=== PATIENT | female | born 1990 | race African-American/Black ===

== ENCOUNTER 2018-09-10 11:42 | Outpatient (CLI) | payer OTHER ==
--- NOTE | 2018-09-10 12:11 | RAD ---
DOUBLE CONTRAST UPPER GI: CLINICAL HISTORY: Morbid obesity. Preparation for gastric procedure. FINDINGS: There is an appropriate swallowing mechanism and esophageal motility demonstrated with the utilizatio n of effervescent crystals and thick and thin barium. A 12.5 mm barium tablet was administered and d id freely pass through the esophagus and into the stomach. No evidence of esophageal mass or constri cting lesion. The double-contrast opacified gastric lumen is free from significant mass effect. The re is subsequent contrast opacification of a normal caliber proximal small bowel. IMPRESSION: Unremarkable double contrast upper gastrointestinal study. POS: [facility]
== END 2018-09-10 11:43 | disposition home or self-care (01) ==
LOC: RAD 11:42
PROVIDERS: ATTEND Family Medicine
DX: E66.01 Morbid (severe) obesity due to excess calories (principal)
CPT/HCPCS: 74247

== ENCOUNTER 2018-09-13 16:12 | Outpatient (CLI) | payer OTHER | END 2018-09-13 16:13 | disposition home or self-care (01) | LOC: DTY/OP 16:12 | PROVIDERS: ATTEND Specialist | DX: Z01.818 Encounter for other preprocedural examination (principal); E66.01 Morbid (severe) obesity due to excess calories | CPT/HCPCS: 97802 ==

== ENCOUNTER 2018-11-10 13:43 | Outpatient (CLI) | payer OTHER ==
--- NOTE | 2018-11-10 14:14 | RAD ---
CHEST 2 VIEWS: HISTORY: Dyspnea. COMPARISON: Radiograph 2004. FINDINGS: Heart size is moderately enlarged. No pneumothorax. No effusion. No significant pulmonary edema. NO acute osseous abnormality. IMPRESSION: Moderate cardiomegaly. POS: [facility]
== END 2018-11-10 13:44 | disposition home or self-care (01) ==
LOC: RAD 13:43
PROVIDERS: ATTEND Internal Medicine Pulmonary Disease
DX: R06.00 Dyspnea, unspecified (principal); I51.7 Cardiomegaly
CPT/HCPCS: 71046

== ENCOUNTER 2018-12-06 19:30 | Outpatient (CLI) | payer OTHER | END 2018-12-06 19:31 | disposition home or self-care (01) | LOC: SLEEPLAB 19:30 | PROVIDERS: ATTEND Internal Medicine Pulmonary Disease | DX: G47.33 Obstructive sleep apnea (adult) (pediatric) (principal); I10 Essential (primary) hypertension | CPT/HCPCS: 95810 ==

== ENCOUNTER 2018-12-23 20:30 | Outpatient (CLI) | payer OTHER | END 2018-12-23 20:31 | disposition home or self-care (01) | LOC: SLEEPLAB 20:30 | PROVIDERS: ATTEND Internal Medicine Pulmonary Disease | DX: G47.33 Obstructive sleep apnea (adult) (pediatric) (principal) | CPT/HCPCS: 95811 ==

== ENCOUNTER 2019-02-20 22:11 | Observation (INO) | payer OTHER ==
[2019-02-20 22:49] LABS: #Basophils 0.1 thou/uL (0.0-0.2); #Eosinphils 0.4 thou/uL (0.0-0.7); #Lymphocytes 3.7 thou/uL (1.20-3.40); #Monocytes 0.7 thou/uL (0.11-0.59); #Neutrophils 5.3 thou/uL (1.40-6.50); %Basophils 1.3 % (0.0-1.0); %Eosinophils 3.5 % (0.0-10.0); %Neutrophils 52.2 % (42.0-75.0); Mean Corpuscular HGB CONC 31.8 g/dL (32.0-36.0); Mean Corpuscular Hemoglobin 29.4 pg (27.0-31.0); Mean Corpuscular Volume 92.5 fL (78.0-98.0); Mean Platelet Volume 6.8 fL (7.4-10.4); Platelet Count 369 thou/uL (130-400); RBC Distribution Width 12.1 % (11.5-14.5); Red Blood Cell (RBC) Count 4.08 mill/uL (4.20-5.40); White Blood Cell (WBC) Count 10.2 thou/uL (4.8-10.8)
--- NOTE | 2019-02-20 23:00 | RAD ---
PORTABLE UPRIGHT FRONTAL CHEST RADIOGRAPH: 02/20/2019 HISTORY: Chest pain and shortness of breath. COMPARISON: 11/10/2018 FINDINGS: The cardiac silhouette is mildly prominent, in the transverse dimension, similar when compared to the prior examination. The significance is uncertain, secondary to the portable technique and shallow i nspiration. Findings may signify cardiomegaly and/or pericardial effusion. No pneumothorax, pleural fluid, focal consolidation, or alveolar edema. IMPRESSION: Prominence of the cardiac silhouette, as detailed above. POS: [facility]
[2019-02-20 23:11] LABS: ALT (SGPT) 14 U/L (8-55); AST (SGOT) 16 U/L (5-34); Albumin 3.9 g/dL (3.5-5.0); Alkaline Phosphatase 65 U/L (40-150); Anion Gap 10 mmol/L (10-20); BUN (Urea Nitrogen) 13 mg/dL (7.0-18.7); Bilirubin, Total 0.3 mg/dL (0.2-1.2); Calc. Creatinine Clearance 0 mL/min (70-130); Calcium 9.2 mg/dL (7.8-10.44); Carbon Dioxide 28 mmol/L (22-29); Chloride 107 mmol/L (98-107); Estimated GFR-MDRD Greater than 90; Globulin 3.1 g/dL (2.4-3.5); Glucose 109 mg/dL (70-105); Potassium 3.6 mmol/L (3.5-5.1); Sodium 141 mmol/L (136-145)
[2019-02-20] MEDS ORDERED: Lidocaine Viscous Sol 2% 15 ml UD Cup ONE (23:32)
[2019-02-20] MEDS ORDERED: Mag-Al 1200 mg/1200 mg/30 ML UDCUP ONE (23:32)
[2019-02-21] MEDS ORDERED: Acetaminophen 325 MG TAB PO PRN (01:21)
[2019-02-21] MEDS ORDERED: Zolpidem Tartrate 5 MG TAB PO PRN (01:21)
[2019-02-21] MEDS ORDERED: Ondansetron PF 4 MG/2 ML Vial IVP PRN (01:21)
[2019-02-21] MEDS ORDERED: cloNIDine 0.1 MG TAB PO PRN (01:24)
--- NOTE | 2019-02-21 01:28 | HP ---
CHIEF COMPLAINT ON ADMISSION: Chest pain. HISTORY OF PRESENT ILLNESS: This is a 28-year-old female, morbidly obese, presenting with chest pain. States that she has a primary, outpatient takes labetalol, losartan as well as Norvasc for her blood pressure. Otherwise, did not take any other medications. States that about 1 hour prior to arrival in the ER, the patient started having substernal chest pain, pressure-like in nature. The patient was brought into the ER. Denies any other associated symptoms. No alleviating or aggravating factors noted. The patient is seen and examined in the ER, currently stable, not pain-free. No family at bedside. All questions answered. ALLERGIES: NO KNOWN DRUG ALLERGIES. HOME MEDICATIONS: As mentioned in HPI. PAST MEDICAL HISTORY: Hypertension, hyperlipidemia, and obesity. SOCIAL HISTORY: Social drinker. Nonsmoker. FAMILY HISTORY: Positive for hypertension and diabetes mellitus. REVIEW OF SYSTEMS: All systems reviewed, pertinent positive in HPI, otherwise negative. PHYSICAL EXAMINATION: VITAL SIGNS: Blood pressure was 151/88, respiratory rate 18, temperature of 98, O2 saturations were 98% on 2 L nasal cannula. GENERAL: The patient is sitting in bed, in no acute discomfort. HEENT: Pupils are equal, round, and reactive to light and accommodation. Extraocular muscles intact. Normocephalic, atraumatic. Oral cavity moist and pink. NECK: Supple, mobile, and nontender. Thyroid appreciated. PULMONARY: Distant lung sounds given large chest. No respiratory distress. No rales, rhonchi, or wheezing appreciated. CARDIOVASCULAR: Sinus tachycardia, S1 and S2. No murmurs, rubs, or gallops appreciated. ABDOMEN: Rotund. Positive bowel sounds. Soft, nontender, and nondistended. EXTREMITIES: 2+ peripheral pulses bilaterally. Trace pitting edema. LABORATORY DATA: CBC and BMP were reviewed. Chest x-ray also reviewed. Chest x-ray shows prominent cardiac silhouette, but no acute cardiopulmonary pathology. ASSESSMENT: 1. Chest pain. 2. Congestive heart failure. 3. Obesity. 4. Hypertension. 5. Hyperlipidemia. PLAN: At this point in time, we will admit the patient to Internal Medicine team. Start aspirin, statin, and cholesterol medication as well as home medications. Target systolic blood pressure 120 to 140, we will check A1c. We will repeat labs in a.m., trend troponins. We will also obtain an echocardiogram as the patient not had a prior echo in the past 1 year. The patient wishes to remain a full code. Case and plan were discussed with patient at length. She understood and agreed with this plan. Job ID: [id number]
[2019-02-21 01:49] LABS: Hemoglobin A1c 3.9 % (4.0-6.0)
[2019-02-21] MEDS ORDERED: Morphine 4 MG/ML VIAL SLOW IVP PRN (03:16)
[2019-02-21] MEDS ORDERED: Labetalol HCl 100 MG/20 ML VIAL SLOW IVP PRN (03:17)
[2019-02-21 03:25] VITALS: TEMP 98.3; BMI 58.8
[2019-02-21 08:17] VITALS: BP 164/105
[2019-02-21] MEDS ORDERED: Aspirin 81 mg Enteric Coated Tablet PO SCH (09:00)
[2019-02-21] MEDS ORDERED: Amlodipine 10 MG TAB PO SCH (09:00)
[2019-02-21] MEDS ORDERED: Labetalol 100 MG TAB PO SCH (09:00)
[2019-02-21] MEDS ORDERED: Enoxaparin Sodium 40 MG/0.4 ML SYRINGE SC SCH (09:00)
[2019-02-21] MEDS ORDERED: Atorvastatin Calcium 40 MG TAB PO SCH (21:00)
--- NOTE | 2019-02-21 23:44 | DIS ---
DATE OF ADMISSION: 02/21/2019 DATE OF DISCHARGE: 02/21/2019 The patient left AMA on morning of 02/21/2019. ALLERGIES: NIFEDIPINE. CHIEF COMPLAINT: Chest pain. FINAL DIAGNOSES: 1. Chest pain, atypical, acute coronary syndrome ruled out. 2. Hypertensive urgency. PROCEDURES PERFORMED: None. LABORATORY RESULTS: White blood cell count 10.2, RBC 4.08, and hemoglobin 12. Sodium 141, potassium 3.6, chloride 107, creatinine 0.78, BUN 13, and glucose 109. Hemoglobin A1c 3.9. Troponin negative at less than 0.010. Albumin 3.9, lipase 34. TSH 1.434. IMAGING RESULTS: Chest x-ray, prominence of cardiac silhouette in the transverse dimension when compared to prior examination. No pneumothorax, pleural fluid, focal consolidation, or alveolar edema. Findings may signify a cardiomegaly. CONSULTATIONS: None. HOSPITAL COURSE: The patient is a 28-year-old obese female, who presented to the emergency room with complaints of chest discomfort that she described as a pressure. On arrival to the ER, the patient's blood pressure was significantly elevated at 227/116. She was given sublingual nitroglycerin with good response in her blood pressure and relief of her chest discomfort. She did rest well overnight and had no further chest discomfort this morning, the patient was given her oral blood pressure pills, but left AMA prior to full resolution of her hypertension, or having echocardiogram performed. PHYSICAL EXAMINATION: VITAL SIGNS: Blood pressure 164/105, temperature is afebrile, pulse 63, and O2 saturation 100% on room air. GENERAL: Awake and alert on exam. No focal deficits. HEENT: Atraumatic and normocephalic. Eye movement intact. NECK: Supple. No lymphadenopathy. No JVD. RESPIRATORY: Regular respiratory rate and pattern. Clear to auscultation bilaterally. CV: S1, S2. No appreciable murmurs, rubs, or gallops. GI: Soft, nontender. Normal bowel sounds. Obese. PERIPHERAL VASCULAR: No lower extremity edema. MUSCULOSKELETAL: No joint effusion or swelling. NEUROLOGIC: Nonfocal. Cranial nerves 2 through 12 grossly intact. SKIN: Normal and dry. No skin discoloration. PLAN: As mentioned, the patient left AMA prior to echocardiogram being performed, and prior to an appropriate titration of her blood pressure medications. Job ID: [id number]
== END 2019-02-21 10:42 | disposition left against medical advice (07) ==
LOC: ERS 22:11 → 2SW 02-21 00:55
PROVIDERS: ADMIT Internal Medicine; ATTEND Internal Medicine
DX: R07.89 Other chest pain (principal); I16.0 Hypertensive urgency; I11.0 Hypertensive heart disease with heart failure; I50.9 Heart failure, unspecified; E78.5 Hyperlipidemia, unspecified; E66.01 Morbid (severe) obesity due to excess calories; Z68.43 Body mass index [BMI] 50.0-59.9, adult; Z88.8 Allergy status to other drugs, medicaments and biological substances; Z79.899 Other long term (current) drug therapy
CPT/HCPCS: 36415; 71045; 80053; 83036; 83690; 84443; 84484; 85025; 93005; 93306; 96374; 96376; G0378; J3490

== ENCOUNTER 2019-08-04 10:08 | Inpatient (IN) | payer OTHER ==
[2019-09-16 09:57] VITALS: BMI 56.0
[2019-09-20] MEDS ORDERED: cefOXitin 2 GM VIAL ONE (06:18)
[2019-09-20] MEDS ORDERED: Scopolamine 1.5 mg/72 hour Patch ONE (06:18)
[2019-09-20] MEDS ORDERED: Ketorolac Tromethamine 30 MG/ML VIAL ONE (06:18)
[2019-09-20] MEDS ORDERED: Sodium Chloride 0.9% 100 ML ONE (06:18)
[2019-09-20] MEDS ORDERED: Fentanyl 100 MCG/2 ML VIAL ONE ×4 (06:24→12:51)
[2019-09-20] MEDS ORDERED: Bupivacaine/Epinephrine 0.25% 30 ML VIAL ONE (06:39)
[2019-09-20] MEDS ORDERED: Midazolam HCl 2 mg/2 ml Vial ONE (07:16)
[2019-09-20] MEDS ORDERED: diphenhydrAMINE 50 MG/ML VIAL IVP PRN (10:56)
[2019-09-20] MEDS ORDERED: Morphine 4 MG/ML VIAL SLOW IVP PRN (10:56)
[2019-09-20] MEDS ORDERED: Promethazine HCl 25 MG/ML VIAL IM PRN ×2 (10:56→11:07)
[2019-09-20] MEDS ORDERED: Ondansetron PF 4 MG/2 ML Vial IVP PRN (10:56)
[2019-09-20] MEDS ORDERED: hydrALAZINE 20 MG/ML VIAL SLOW IVP PRN (10:56)
[2019-09-20] MEDS ORDERED: Dextrose 5% in Water 1,000 ML IV PRN (10:56)
[2019-09-20] MEDS ORDERED: Dextrose 50% Abboject 50 ML SYRINGE SLOW IVP PRN (10:56)
[2019-09-20] MEDS ORDERED: Promethazine HCl 25 MG/ML VIAL SLOW IVP PRN (11:07)
[2019-09-20] MEDS ORDERED: Ondansetron HCl/PF 4 MG/2 ML Vial IVP PRN (11:07)
[2019-09-20] MEDS ORDERED: Labetalol HCl 100 MG/20 ML VIAL ONE (11:16)
[2019-09-20] MEDS ORDERED: Promethazine HCl 25 MG/ML VIAL ONE (11:20)
[2019-09-20] MEDS ORDERED: Morphine 2 MG/ML SYRINGE SLOW IVP PRN (12:12)
[2019-09-20] MEDS ORDERED: Pantoprazole 40 MG VIAL IVP SCH (12:30)
[2019-09-20] MEDS: Hydrocodone-Acetamin 15 ML UDCUP PO PRN ×2 (14:11→22:04)
[2019-09-20] MEDS: D5 1/2 NS w/20 mEq KCL 1,000 ML IV SCH ×2 (14:16→22:06)
[2019-09-20] MEDS: Ketorolac Tromethamine 30 MG/ML VIAL IVP SCH ×2 (14:16→17:53)
[2019-09-20] MEDS: Acetaminophen 1,000 MG in Premix Bag 1 BAG IVPB SCH ×3 (14:16→22:12)
[2019-09-20] MEDS ORDERED: Dexamethasone 20 MG/5 ML VIAL ONE (15:17)
[2019-09-20] MEDS ORDERED: Lidocaine 1% PF 5 ML VIAL ONE (15:17)
[2019-09-20] MEDS ORDERED: Ondansetron PF 4 MG/2 ML Vial ONE (15:17)
[2019-09-20] MEDS ORDERED: Glycopyrrolate 0.2 MG/ML 5 ML SYRINGE ONE (15:17)
[2019-09-20] MEDS ORDERED: Rocuronium Bromide 10 MG/ML (10ML VIAL) ONE (15:17)
[2019-09-20] MEDS ORDERED: Succinylcholine Chloride 20 MG/ML 10 ml SYRINGE FS ONE (15:17)
[2019-09-20] MEDS ORDERED: PROPOFOL 200 MG/20 ML VIAL ONE (15:17)
--- NOTE | 2019-09-20 15:24 | OP ---
DATE OF PROCEDURE: 09/20/2019 PREOPERATIVE DIAGNOSIS: Morbid obesity. POSTOPERATIVE DIAGNOSIS: Morbid obesity. PROCEDURE PERFORMED: Laparoscopic Chan-en-Y gastric bypass. FORGING PRESS OPERATOR: Dr. Dorian Dolna and Opal Santos, medical student. ANESTHESIA: General endotracheal per Demarcus Marcus MD. INDICATIONS: The patient is a 29-year-old morbidly obese black female with a BMI of about 55 before surgery. She has undergone extensive evaluation and education and presents at this time for laparoscopic gastric bypass. DESCRIPTION OF PROCEDURE: Informed consent was obtained. The patient was taken to the operating room, where general endotracheal anesthesia was obtained with the patient in supine position. Abdomen was prepped with ChloraPrep and draped in sterile fashion. Local anesthetic was infiltrated. A 5-mm supraumbilical incision was created through, which a Veress needle was passed into the peritoneal cavity. I had difficulty ascertaining that this was in the abdominal cavity and I instead placed a 5-mm port using the camera and the Visiport capability. This did pass into the abdominal cavity and insufflation was performed to explore any of the abdominal cavity. I placed 4 additional ports including bilateral subcostal 5-mm ports, a 12-mm right paramedian port, and a 15-mm left paramedian port. Of note, placement of each of these ports was very difficult that she seemed to have much stronger than usual fascia and muscles and she had an extraordinarily thick layer of subcutaneous fat. I eventually had to place an additional 5-mm camera port lower in the supraumbilical level due to difficulty using the port in its standard location. I also additionally made a 5-mm epigastric incision through which I placed the Rebeca retractor to retract the left lobe of the liver. There was a single adhesion to the anterior abdominal wall that was lysed with LigaSure. The omentum was reflected superiorly. She did not have a particularly large omentum. The omentum was split in the midline to the level of the transverse colon. The ligament of Treitz was identified at about 40 cm in the ligament of Treitz. The small bowel was transected with a single firing of the white load of the [employer] [place] stapler. 5 cm of the distal transected small bowel was devascularized using the LigaSure device. 150 cm distally, the small bowel was identified and an anastomosis was created between the biliary limb and the Chan limb at this level using a single fire of the white load of the [place] stapler. The enterotomy was closed with another firing of the white load of the stapler. The mesenteric defect was closed with 3 interrupted sutures of 3-0 Vicryl. Attention was then turned to the stomach. The angle of His was dissected. About 5 cm down on the lesser curvature, the lesser curve was dissected gaining access into the lesser sac. The stomach was partially transected at this level using a blue load of the stapler. A gastrotomy was created inferior to this and through this gastrotomy, the anvil of a 25 mm EEA stapler was passed into the upper pouch. The anvil was brought through the anterior aspect of the pouch using the 5 mm band passer to accomplish this. The gastrotomy was closed with two fires of the blue load of the stapler. The pouch was completed with 2 fires of the blue of the stapler along the left aspect of the pouch and extending up into the angle of His. The transection was complete. The staple lines were inspected and found to be hemostatic. The Chan limb was brought up and an enterotomy was created. The stapler was passed through the 15-mm port site and passed in through the opening in the small bowel and advanced several centimeters. The spike of the stapler was advanced through the antimesenteric segment of the small bowel wall and this was secured to the anvil that was positioned in the gastric pouch. These two segments of the bowel were then approximated and anastomosed by firing the stapler. The staple was removed and the donuts were inspected and found to be intact. The enterotomy was excluded with a final firing of the white load of the stapler. The gastrojejunostomy was buttressed with 3 interrupted sutures of 3-0 Vicryl. The orogastric tube was advanced through the anastomosis and the area was insufflated while under water to ensure that it was airtight. There was no evidence of bleeding or air leak. All irrigant was aspirated. The Chan limb was inspected one final time to make sure there was no twists or injuries. The jejunojejunostomy was inspected and found to be intact and entirely viable as well. The fascia at the 15-mm port site was closed with 0 Vicryl suture and a GraNee needle by placing the 3 separate sutures. It had been very difficult to pass the anvil and the stapler through the stump and because of the patient's anatomy and the toughness of her muscle and she therefore had a larger than typical defect at this level. All ports and instruments were removed under direct vision. Pneumoperitoneum was carefully evacuated. Rebeca retractor was removed. A 0.25% Marcaine with epinephrine was infiltrated into each port site. Skin edges were approximated with 4-0 Monocryl subcuticular suture. The larger port site was irrigated copiously. Dermabond was placed externally on each port site. There were no complications. Blood loss was negligible. The patient tolerated the procedure well and was taken to recovery room in stable condition. Job ID: [id number]
[2019-09-20] MEDS ORDERED: Enoxaparin Sodium 40 MG/0.4 ML SYRINGE SC SCH (21:00)
[2019-09-21] MEDS: Ketorolac Tromethamine 30 MG/ML VIAL IVP SCH ×2 (00:10→05:43)
[2019-09-21 04:20] VITALS: BP 183/101; TEMP 98.3
[2019-09-21] MEDS: Acetaminophen 1,000 MG in Premix Bag 1 BAG IVPB SCH (05:43)
[2019-09-21] MEDS: D5 1/2 NS w/20 mEq KCL 1,000 ML IV SCH (05:47)
[2019-09-21 06:03] LABS: #Basophils 0.1 thou/uL (0.0-0.2); #Monocytes 1.3 thou/uL (0.11-0.59); #Neutrophils 9.5 thou/uL (1.40-6.50); %Basophils 0.5 % (0.0-1.0); %Eosinophils 0.2 % (0.0-10.0); %Lymphocytes 21.4 % (21.0-51.0); %Monocytes 9.4 % (0.0-10.0); %Neutrophils 68.6 % (42.0-75.0); Hemoglobin 12.7 g/dL (12.0-16.0); Mean Corpuscular HGB CONC 33.4 g/dL (32.0-36.0); Mean Corpuscular Hemoglobin 30.3 pg (27.0-31.0); Mean Corpuscular Volume 90.5 fL (78.0-98.0); Mean Platelet Volume 7.2 fL (7.4-10.4); Platelet Count 352 thou/uL (130-400); RBC Distribution Width 11.7 % (11.5-14.5); Red Blood Cell (RBC) Count 4.21 mill/uL (4.20-5.40); White Blood Cell (WBC) Count 13.8 thou/uL (4.8-10.8)
[2019-09-21 06:24] LABS: Anion Gap 14 mmol/L (10-20); BUN (Urea Nitrogen) 6 mg/dL (7.0-18.7); Calc. Creatinine Clearance 275 mL/min (70-130); Calcium 8.7 mg/dL (7.8-10.44); Carbon Dioxide 22 mmol/L (22-29); Chloride 104 mmol/L (98-107); Estimated GFR-MDRD Greater than 90; Glucose 101 mg/dL (70-105); Potassium 3.3 mmol/L (3.5-5.1); Sodium 137 mmol/L (136-145)
[2019-09-21] MEDS ORDERED: Pantoprazole 40 MG VIAL IVP SCH (09:00)
[2019-09-21] MEDS ORDERED: FLU VACC QS2019-20(6MOS UP)/PF 60 MCG/0.5 ML SYRINGE IM ONE (09:00)
== END 2019-09-21 12:39 | disposition home or self-care (01) | DRG 621 ==
LOC: SURG A 09-20 05:48
PROVIDERS: ADMIT Specialist; ATTEND Specialist
PROC: 0D164ZA Bypass Stomach to Jejunum, Percutaneous Endoscopic Approach (ICD-10-PCS; principal; 2019-09-20)
DX: E66.01 Morbid (severe) obesity due to excess calories (principal); G47.33 Obstructive sleep apnea (adult) (pediatric); I10 Essential (primary) hypertension; F17.200 Nicotine dependence, unspecified, uncomplicated; Z68.43 Body mass index [BMI] 50.0-59.9, adult; Z88.8 Allergy status to other drugs, medicaments and biological substances
CPT/HCPCS: 36415; 80048; 85025; C9113; J0131; J0360; J0694; J1100; J1650; J1885; J2001; J2250; J2405; J2550; J2704; J3010; J3490

== ENCOUNTER 2019-09-16 09:16 | Outpatient (CLI) | payer OTHER ==
[2019-09-16 11:02] LABS: #Basophils 0.1 thou/uL (0.0-0.2); #Eosinphils 0.1 thou/uL (0.0-0.7); #Lymphocytes 3.1 thou/uL (1.20-3.40); #Monocytes 0.4 thou/uL (0.11-0.59); #Neutrophils 2.9 thou/uL (1.40-6.50); %Basophils 1.5 % (0.0-1.0); %Eosinophils 2.2 % (0.0-10.0); %Lymphocytes 46.9 % (21.0-51.0); %Monocytes 6.5 % (0.0-10.0); %Neutrophils 42.8 % (42.0-75.0); Hemoglobin 13.6 g/dL (12.0-16.0); Mean Corpuscular HGB CONC 33.6 g/dL (32.0-36.0); Mean Corpuscular Hemoglobin 30.6 pg (27.0-31.0); Mean Corpuscular Volume 91.1 fL (78.0-98.0); Mean Platelet Volume 7.1 fL (7.4-10.4); Platelet Count 419 thou/uL (130-400); RBC Distribution Width 11.7 % (11.5-14.5); Red Blood Cell (RBC) Count 4.44 mill/uL (4.20-5.40); White Blood Cell (WBC) Count 6.7 thou/uL (4.8-10.8)
[2019-09-16 11:21] LABS: BHCG - Serum Negative (NEGATIVE); Pregs Control Background? CLEAR/WHITE (CLR/WHITE); Pregs Control Bar Appear? YES (CONTROL BAR)
[2019-09-16 11:24] LABS: Anion Gap 13 mmol/L (10-20); BUN (Urea Nitrogen) 12 mg/dL (7.0-18.7); Calc. Creatinine Clearance 0 mL/min (70-130); Calcium 9.5 mg/dL (7.8-10.44); Carbon Dioxide 25 mmol/L (22-29); Chloride 105 mmol/L (98-107); Estimated GFR-MDRD Greater than 90; Glucose 81 mg/dL (70-105); Potassium 4.5 mmol/L (3.5-5.1); Sodium 138 mmol/L (136-145)
--- NOTE | 2019-09-19 23:07 | EKG ---
Test Reason : Blood Pressure : / mmHG Vent. Rate : 074 BPM Atrial Rate : 074 BPM P-R Int : 186 ms QRS Dur : 104 ms QT Int : 396 ms P-R-T Axes : 076 054 053 degrees QTc Int : 439 ms Normal sinus rhythm Normal ECG When compared with ECG of 20-FEB-2019 22:21, No significant change was found Confirmed by RELL HINSON M.D. ([id number]) on 09/19/2019 11:06:53 PM Referred By: MEGAN Confirmed By:RELL HINSON M.D.
== END 2019-09-16 09:17 | disposition home or self-care (01) ==
LOC: LABBT 09:16
PROVIDERS: ATTEND Specialist
DX: Z01.818 Encounter for other preprocedural examination (principal); E66.01 Morbid (severe) obesity due to excess calories
CPT/HCPCS: 80048; 84703; 85025; 93005; 93010

== ENCOUNTER 2024-06-23 09:39 | Outpatient (CLI) | payer OTHER | END 2024-06-23 09:40 | disposition home or self-care (01) | LOC: BICRAD 09:39 | PROVIDERS: ATTEND Preventive Medicine Occupational Medicine | DX: Z02.71 Encounter for disability determination (principal); M25.561 Pain in right knee; I50.9 Heart failure, unspecified; M25.461 Effusion, right knee; M17.11 Unilateral primary osteoarthritis, right knee | CPT/HCPCS: 71046 ==